=== PATIENT | male | born 1940 | race Two or more races ===

== ENCOUNTER → 2017-02-15 | Outpatient (CLI) | payer MEDICARE ==
--- NOTE | 2017-02-17 13:10 | XR ---
EXAMINATION TYPE: PA chest and left rib series DATE OF EXAM: 02/15/2017 COMPARISON: Chest 12/05/2015 HISTORY: 76-year-old male pain anterior mid ribs after fall 5 weeks ago, sprain. FINDINGS: Heart is normal size. Mild atherosclerotic arch calcifications. Some strandy atelectasis at the lung bases. Otherwise, lungs and pleural spaces are clear. No displaced left rib fracture seen. IMPRESSION: No displaced left rib fracture or acute cardiopulmonary process seen.
== END | disposition home or self-care (01) ==
LOC: RADXRYALE 11:01
PROVIDERS: ATTEND Nurse Practitioner Family
DX: S23.41XA Sprain of ribs, initial encounter (principal)

== ENCOUNTER → 2018-06-30 | Outpatient (CLI) | payer MEDICARE ==
--- NOTE | 2018-06-30 13:40 | US ---
EXAMINATION TYPE: US abdomen complete DATE OF EXAM: 06/30/2018 COMPARISON: Correlation CT 12/05/2015 CLINICAL HISTORY: 77-year-old male D41.02 Neoplasm of uncertain behavior of left kidney. Intermittent RUQ pain x 3 months, history of cholecystectomy TECHNIQUE: Multiple sonographic images of the abdomen are obtained. FINDINGS: EXAM MEASUREMENTS: Liver Length: 15.8 cm Gallbladder: surgically absent CBD: 0.3 cm Spleen: 12.0 cm Right Kidney: 11.9 x 6.1 x 5.2 cm Left Kidney: 11.4 x 5.6 x 5.1 cm Pancreas: Suboptimal visualization of the pancreatic head and tail due to shadowing from bowel gas. Visualized portions show no gross abnormality. Liver heterogeneous with mild to moderate increased echogenicity. No focal lesion seen. Gallbladder: surgically absent Evidence for sonographic Reece's sign: no CBD: wnl Spleen: visualized portions wnl, limited by overlying bowel gas Right Kidney: No hydronephrosis. Left Kidney: 2.1 x 2.6 x 2.2cm lower pole cyst. No hydronephrosis. Upper IVC: wnl Abd Aorta: visualized portions wnl, limited by overlying midline bowel gas IMPRESSION: 1. Suspect moderate fatty infiltration of the liver. Correlate with LFTs, lipid profile, and patient risk factors. 2. Innumerable small cysts within the kidney seen on patient's prior CT are not well-demonstrated by ultrasound. There is a dominant 2.6 cm simple cyst in the left lower pole.
== END | disposition home or self-care (01) ==
LOC: RADUSWWP 09:44
PROVIDERS: ATTEND Family Medicine
DX: D41.02 Neoplasm of uncertain behavior of left kidney (principal); Z90.49 Acquired absence of other specified parts of digestive tract
CPT/HCPCS: 76700